=== PATIENT | female | born 1930 | race Caucasian/White ===

== ENCOUNTER 2016-08-26 13:00 | Inpatient (IN) | payer MEDICARE, BC ==
--- NOTE | ~2016-08-26 | DS ---
Unit #: [id number] #: [id number] Patient: VICTORIA CASE [id number] [address] [place], [place] [address] [id number] I MR#: [id number] NAME: VICTORIA CASE ROOM: 212 Age: 86 Sex: F Admission Date: 08/27/2016 : 1930 Discharge Date: 08/30/2016 Attending Physician: Darci Chua M.D. Primary Care Physician: Analisa Hall M.D. DISCHARGE SUMMARY FINAL DIAGNOSIS Intractable back pain secondary to multilevel degenerative cord compression without abnormal signal on MRI of 08/27/16. SECONDARY DIAGNOSES 1. Anxiety. 2. Hypertension. 3. Asthma. 4. Gastroesophageal reflux disease. HOSPITAL COURSE The patient is an 86-year-old female who basically presents with back pain. She had difficulty walking. I think the history suggests that she tripped and fell a few weeks prior to presentation. She was seen and evaluated and she had a MRI of her back which showed the above stated findings. Spine was consulted on account of abnormal MRI. However, it looks like their recommendations eventually were for an outpatient followup more so as the findings were chronic and not acute. She has outpatient followup appointment with Dr. Martinez on 09/02/2016. She will be discharged home with [facility], [facility]. MEDICATION ON DISCHARGE 1. Percocet 5/325 mg one tablet q.4 hourly p.r.n. 2. Medrol Dosepak. 3. ProAir HFA. 4. Triamcinolone cream per home dose. 5. Tylenol 650 mg every six hours p.r.n. over the counter. 6. Neurontin 200 mg p.o. twice a day. 7. Shantal 180 mg p.o. daily. 8. Alprazolam 0.5 mg p.o. t.i.d. 9. Coreg 6.25 mg p.o. b.i.d. 10. Amlodipine 5 mg every day. 11. Colace 100 mg b.i.d. 12. MiraLax 17 g p.o. daily as needed for constipation. 13. Breo Ellipta one daily. 14. Lasix 40 mg p.o. daily. 15. Lovastatin 20 mg every evening. 16. Hydralazine 50 mg p.o. t.i.d. 17. Cozaar 100 mg p.o. daily. 18. Fish oil one tablet p.o. daily. 19. Multivitamin one tablet p.o. daily. 20. Protonix 40 mg p.o. daily. 21. Calcium with vitamin D one tablet p.o. b.i.d. Unit #: [id number] #: [id number] Patient: VICTORIA CASE Time spent coordinating discharge about 22 minutes. Dictated by... Rafael Burns TD: 08/30/2016 14:21 JOB #: [id number] DISCHARGE SUMMARY X Ingrid Trnih MD X DISCHARGE SUMMARY
--- NOTE | ~2016-08-26 | CR63 ---
[facility] A Service of [facility] RADIOLOGY TEXT RESULTS PATIENT: VICTORIA CASE LOCATION: A : 30 UNIT #: [id number] AGE: [address]: Darci Chua MD SEX: F ORDER DR: [id number] [facility] [address] [facility]. [place], [place] [address] [id number] I MR#: [id number] Acc #: [id number] NAME: VICTORIA CASE : 1930 SEX: F STUDY DATE/TIME: 08/29/2016 9:42 UNIT: [facility] ROOM: [facility] STUDY DESCRIPTION: CR Chest 2 View Attending Physician: Darci Chua M.D. Primary Care Physician: Analisa Hall M.D. MEDICAL IMAGING REPORT This report is preliminary unless electronic signature is present EXAM PA and lateral chest, 08/29/2016 HISTORY 86-year-old female with shortness of breath. FINDINGS The heart is not enlarged. The lungs demonstrate bilateral pulmonary emphysema. Prior left shoulder replacement identified. No pneumothorax or pleural effusion seen. IMPRESSION Chronic lung changes but no acute pulmonary infiltrate or consolidation. No cardiac enlargement. Dictated by... Juanpablo Trujillo M.D. THIS IS AN ELECTRONICALLY VERIFIED REPORT Juanpablo Trujillo M.D. at 08/29/2016 4:51 PM Pratik TD: 08/29/2016 11:58 JOB #: [id number] MEDICAL IMAGING REPORT COPY
--- NOTE | ~2016-08-26 | MR32 ---
[facility] A Service of [facility] RADIOLOGY TEXT RESULTS PATIENT: VICTORIA CASE LOCATION: C3A 318- : 30 UNIT #: [id number] AGE: [address]: Darci Chua MD SEX: F ORDER DR: [id number] [facility] [address] [facility] [address] [facility] [place], [place] [address] [id number] I MR#: [id number] Acc #: [id number] NAME: VICTORIA CASE : 1930 SEX: F STUDY DATE/TIME: 08/26/2016 22:15 UNIT: C3A PCU ROOM: 318 STUDY DESCRIPTION: MR Cervical Wo Contrast Attending Physician: Darci Chua M.D. Ordering Physician: Physician Non-Staff Primary Care Physician: Analisa Hall M.D. MRI CENTER REPORT This report is preliminary unless electronic signature is present. EXAM Cervical spine MRI no contrast 08/26/2016 PROCEDURE Routine unenhanced cervical spine MRI COMPARISON None. HISTORY Neck pain after fall 3 weeks ago. History of breast cancer. FINDINGS There is a midcervical loss and even slight reversal of lordosis. There are some degenerative marrow signal changes and there is a slight 3-4 anterolisthesis. These findings all appear degenerative. Cord signal is normal and the posterior fossa and its contents are normal. The paraspinous tissues are remarkable for a possible right thyroid lesion incompletely evaluated here, but probably at least 15 mm in size. Recommend followup thyroid ultrasound. At C2-3, the canal is mildly narrowed and there is borderline left and no right foraminal narrowing. At 3-4, there is a broad disc and osteophyte complex with mild to moderate cord compression. No abnormal cord signal and severe right and moderate left foraminal stenosis. At 4-5, there is a bony ridge with canal stenosis and mild cord compression. There is moderate or moderate to severe right and moderate to severe left foraminal stenosis. At 5-6, there is a disc and osteophyte complex with left side predominant [facility] A Service of [facility] RADIOLOGY TEXT RESULTS PATIENT: VICTORIA CASE LOCATION: C3A 318-01 : 30 UNIT #: [id number] AGE: [address]: Darci Chua MD SEX: F ORDER DR: mild to moderate cord compression and moderate to severe bilateral foraminal stenosis. At 6-7, there is a disc and osteophyte complex with mild cord compression and moderate to severe or severe right and moderate to severe left foraminal stenosis. At 7-1, there is no canal stenosis or foraminal stenosis. IMPRESSION 1. Multilevel degenerative change and multilevel degenerative cord compression without abnormal cord signal. Multilevel foraminal compromise as well, see above for level by level details. 2. Suspect at least 15 mm right thyroid lesion. Recommend followup thyroid ultrasound. Dictated by... John Estrada M.D. THIS IS AN ELECTRONICALLY VERIFIED REPORT John Estrada M.D. at 08/28/2016 1:31 PM ROSINA/josh TD: 08/27/2016 09:48 JOB #: [id number] MRI CENTER REPORT COPY
--- NOTE | ~2016-08-26 | EKG ---
PATIENT: VICTORIA CASE UNIT #: [id number] Ventricular Rate: 68 BPM Atrial Rate: 68 BPM P-R Interval: 150 ms QRS Duration: 88 ms Q-T Interval: 372 ms QTC Calculation(Bezet): 395 ms P [place]: 39 degrees Calculated R [place]: -20 degrees Calculated T [place]: 13 degrees Diagnosis Line: Normal sinus rhythm with sinus arrhythmia Diagnosis Line: Moderate voltage criteria for LVH, may be normal Diagnosis Line: variant Diagnosis Line: Borderline ECG Diagnosis Line: When compared with ECG of 16-JAN-2016 10:03, Diagnosis Line: T wave inversion now evident in Inferior leads Diagnosis Line: Confirmed by ATUL GERBER MD ([id number]) on 08/29/2016 Diagnosis Line: 5:27:56 PM INTERPRETING MD: BUZZ TALLEY
--- NOTE | ~2016-08-26 | DS ---
Unit #: [id number] #: [id number] Patient: VICTORIA CASE [id number] [facility] [address] [facility]. [place], [place] [address] [id number] I MR#: [id number] NAME: VICTORIA CASE ROOM: 212 Age: 86 Sex: F Admission Date: 08/27/2016 : 1930 Discharge Date: 08/30/2016 Attending Physician: Darci Chua M.D. Primary Care Physician: Analisa Hall M.D. DISCHARGE SUMMARY PRIMARY CARE PHYSICIAN Analisa Hall M.D. DISCHARGE DIAGNOSES Include; 1. 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 This MRI was reviewed by Dr. Martinez remotely as he is unable to come to [facility] for an official consult, who states that due to no abnormal cord signs does not require any emergent intervention. He recommended the patient be treated with physical therapy and pain management. He does have an office at [facility] and she can follow up with him there on Tuesdays. 2. Asthma with acute mild acute exacerbation, treated with DuoNeb. 3. History of breast cancer. 4. Essential hypertension, blood pressure has been stable. 5. Anxiety. 6. Gastroesophageal reflux disease. PROCEDURES None. DIAGNOSTIC STUDIES IMAGING STUDIES: Consist of MRI of the spine with impression, multilevel degenerative change and multilevel degenerative cord compression without abnormal cord sign, multilevel foraminal compromise as well. See above for [id number] details. Suspect at least 15 mm right thyroid lesion. Recommend followup thyroid ultrasound. This can be done outpatient with Dr. Hauser. The two view chest x-ray on 08/29/2016, impression, chronic lung changes, but no acute pulmonary infiltrates or consolidation. No cardiac enlargement. LABORATORY RESULTS: On the day of discharge, the patient's lab includes glucose of 106, BUN 36, creatinine 1.2, sodium 138, potassium 4.4, chloride 99, CO2 of 27, calcium 9.8. CBC with WBC of 7.2, RBC 3.41, hemoglobin is 10.2, hematocrit is 31.0, MCV is 90.7, MCH is 21.9, MCHC is 32.0, RDW is 14.4, platelets are 365. HOSPITAL COURSE The patient is an 86-year-old female with past medical history of essential hypertension, asthma, breast cancer, who was brought to the emergency department due to worsening back pain. The patient had a fall 2 weeks ago while tripping at the house and leaning upon the back. The patient was seen by an ortho surgeon and x-ray was done, prescribed Unit #: [id number] #: [id number] Patient: VICTORIA CASE oxycodone for the pulled muscle. The patient was doing fine at that time; however, for last couple of days, the patient started to have worsening back pain and not able to get up to go to the bathroom. The patient denied fevers, chills, nausea, or vomiting. The patient denies urinary or fecal incontinence. The patient is still able to move all of her limbs. The patient denies palpitations or chest pain. The patient was admitted for back pain with immobility syndrome. An MRI was done with details as noted above, and again Dr. Martinez was consulted, but as he is unable to come to our facility, he did review the patient's MRI and we have discussed her case over the phone. He states that there is nothing to be done acutely and that he recommends physical therapy. He does have an office at [facility] Thursday. I have told the patient this as well as her daughter Ms. Kosta Roe. She will follow up with Dr. Martinez as an outpatient. Ms. Roe expressed concern to me that the patient lives alone, lives on the second stair and that she may fall and injure herself again. Physical Therapy and Occupational Therapy had seen the patient in consultation. The patient had done very well with physical therapy. The patient was able to ambulate for about 150 feet with minimal assist. The patient was also seen in consultation with Occupational Therapy, who states that she is at her baseline. We had requested rehab facilities to look at this patient for possible subacute therapy. Physical therapy reviewed her chart as well as reviewed occupational and physical therapies' notes and stated that she would not be appropriate for the subacute rehab. I have explained to the patient's daughter that she could be placed to a facility, but she would have to pay for this out of pocket. The patient's daughter said that she does not have the fund to do this at this time with her being so independent as evaluated by Occupational and Physical Therapy. I am recommending the patient to be discharged home with continuing physical and occupational therapy through [facility] health. Again, the patient's daughter is concerned that she possibly wound fall at home and concerned that she would not have her pain managed at home. With regards to her asthma, she does have scattered wheezing every now and then on exam and checked her oxygen level is 91% on room air. I have done a chest x-ray, which had no acute disease going on at this time. DISCHARGE CONDITION Stable. DISCHARGE FOLLOWUP Please see Dr. Martinez on [facility] on Thursday morning. Please see Dr. Hauser within 1 to 2 weeks upon discharge. DISCHARGE INSTRUCTIONS Discharge diet is heart healthy. Discharge activity is to resume activity as was prior to hospitalization with ambulating every day as tolerated. DISCHARGE MEDICATIONS Include ProAir inhaled one puff every 4 hours as needed for shortness of breath and/or wheezing, gabapentin 300 mg orally b.i.d., Shantal 180 mg orally daily, alprazolam 0.5 mg orally t.i.d., Coreg 6.25 mg orally b.i.d., Norvasc 5 mg orally every evening, Colace 100 mg orally b.i.d. as needed for constipation, MiraLAX 17 g orally daily as needed for constipation, Breo inhaled one capsule daily, Lasix 40 mg orally daily, Lovastatin 20 mg orally every evening, hydralazine 50 mg orally t.i.d., Cozaar 100 mg orally daily, fish oil one capsule orally t.i.d., multivitamin one tablet orally daily, tramadol 50 mg orally t.i.d., Protonix 40 mg orally daily, calcium plus D one tablet orally b.i.d. Unit #: [id number] #: [id number] Patient: VICTORIA CASE have prescribed oxycodone with acetaminophen 5-325 one tablet every 4 hours as needed for pain, and prescription given for 20. Of note, I am also prescribing Medrol Dosepak to be used as directed. Dictated by... Cory Hinojosa PA-C for Rafael Brown/melita TD: 09/01/2016 14:25 JOB #: [id number] DISCHARGE SUMMARY X X DISCHARGE SUMMARY
--- NOTE | ~2016-08-26 | HP ---
Unit #: [id number] #: [id number] Patient: VICTORIA CASE [id number] [address] [place], [place] [address] [id number] MR#: [id number] NAME: VICTORIA CASE ROOM: Age: 86 Sex: F Admission Date: 08/26/2016 : 1930 Attending Physician: Camille Andrew M.D. Primary Care Physician: Analisa Hall M.D. HISTORY AND PHYSICAL CHIEF COMPLAINT Back pain. HISTORY OF PRESENT ILLNESS The patient is an 86-year-old female with history of hypertension, asthma, brought to the emergency room with worsening back pain. The patient had a fall three weeks ago while tripping at the house and landing upon the back. The patient was seen by the ortho surgeon and had x-ray and was prescribed with Oxycodone for the pulled muscle. The patient was doing fine at that time. However, in the last few days, the patient stated the patient is having worsening back pain and is not able to get up to go to the bathroom. The patient denies any fever, chills, nausea, vomiting. The patient denies any urinary or fecal incontinence. The patient denies any palpitation, chest pain. PAST MEDICAL HISTORY History of hypertension, hyperlipidemia, asthma, breast cancer status post lumpectomy, anxiety, GERD, restless leg syndrome. PAST SURGICAL HISTORY Appendectomy, lumpectomy. SOCIAL HISTORY The patient lives alone. She is accompanied by her son. She stopped smoking 30 years ago. The patient does not drink alcohol. FAMILY HISTORY Noncontributory. Family history reviewed and none. ALLERGIES Triplex, Phenergan, codeine, Mobic. HOME MEDICATIONS 1. Colace. 2. Lasix. 3. Pantoprazole. 4. Calcium. 5. Multivitamin. 6. Coreg. 7. Hydralazine. 8. Cozaar. 9. Breo. 10. ProAir. 11. MiraLax. Unit #: [id number] #: [id number] Patient: VICTORIA CASE 12. Triamcinolone. 13. Shantal. 14. Xanax. 15. Norvasc. 16. Fish oil 17. Lovastatin. 18. Tramadol. 19. Neurontin. REVIEW OF SYSTEMS A 14-point review of systems was performed and only pertinent positive findings are as described above, remaining are negative. PHYSICAL EXAMINATION GENERAL APPEARANCE: The patient is lying on her bed, not in acute distress. VITAL SIGNS: Temperature 97.9. Pulse (1) . Respiratory rate 18. Blood pressure 143/79. Sating 99% at room air. HEENT: Head: Atraumatic, normocephalic. Pupils equal, round and reactive to light and accommodation. Extraocular movements are intact. NECK: Supple. No lymphadenopathy. LUNGS: Decreased air entry at the bases. No rhonchi. No wheezing. HEART: Regular rate and rhythm. ABDOMEN: Soft. Positive bowel sounds. EXTREMITIES: No cyanosis. No clubbing. BACK: Lower back pain, mainly paraspinal. NEUROLOGIC: Alert, awake, oriented. No gross focal motor deficit. DIAGNOSTIC STUDIES Labs not done by the ER physician. We ordered the basic labs, CBC, BMP. ASSESSMENT 1. Back pain. 2. Status post fall. 3. Hypertension. 4. Asthma. PLAN Admit the patient to observation with telemetry. We will check the MRI of the spine as the patient was scheduled to have MRI of the spine at [facility]. I will have Ortho/Spine Surgery follow for the back pain and continue the pain control with morphine and repeat the labs again. Further recommendations will follow. Dictated by Rafael Schofield TD: 08/26/2016 13:41 JOB #: [id number] Unit #: [id number] #: [id number] Patient: VICTORIA CASE HISTORY AND PHYSICAL X X HISTORY AND PHYSICAL
[~2016-08-26 13:00] MED LIST: ALBUTEROL20 ml INH; ALPRAZOLAM1 MG PO; AMLODIPINE BESYL5 MG PO; APRESOLINE10 M1 PO; BREO ELLIPTA I1 EACH INH; BYSTOLIC5 MG PO; CALCIUM + D 6001 TA1 PO; CARVEDILOL3.125 MG PO; CERTAGEN PO; CLARITIN10 M2 PO; COLACE PO; COMBIVENT MININEB INH; COMBIVENT U/D3 M1 INH; COZAAR100 MG PO; ESTER C 500 MG PO; ESTER-C500 M1 PO; FEMARA2.5 MG PO; FISH OIL 1,2001 CAP PO; FISH OIL 1,2001 EAC2 PO; LEVAQUIN PO; LOVASTATIN20 M1 PO; LOVASTATIN20 MG PO; LYSINE500 M1 PO; MIRALAX17 GM DOB; MIRALAX17 GM PO; MULTI-DAY1 TAB PO; NEURONTIN100 MG PO; PANTOPRAZOLE SO40 MG PO; PHENERGAN25 MG PO; PRINIVIL40 MG PO; REQUIP0.25 MG PO; ROBITUSSIN-DM118 ML PO; SINGULAIR PO; STOOL SOFTENER250 MG PO; TRAMADOL HCL50 M1 PO; XANAX1 MG PO
[2016-08-26] MEDS ORDERED: TRIAMCINOLONE AC1 GM EXT (13:02)
[2016-08-26] MEDS ORDERED: ALLEGRA PO (13:02)
[2016-08-26] MEDS ORDERED: MIRALAX17 GM PO (13:02)
[2016-08-26] MEDS ORDERED: ALPRAZOLAM0.5 M1 PO (13:04)
[2016-08-26] MEDS ORDERED: AMLODIPINE BESYL5 MG PO (13:04)
[2016-08-26] MEDS ORDERED: COREG6.25 MG PO (13:05)
[2016-08-26] MEDS ORDERED: HYDRALAZINE HCL50 MG PO (13:05)
[2016-08-26] MEDS ORDERED: COZAAR100 MG PO (13:06)
[2016-08-26] MEDS ORDERED: BREO ELLIPTA 11 EACH INH (13:06)
[2016-08-26] MEDS ORDERED: PROAIR HFA8.5 GM INH (13:07)
[2016-08-26] MEDS ORDERED: PANTOPRAZOLE SO40 MG PO (13:08)
[2016-08-26] MEDS ORDERED: DOCUSATE SODIU100 MG PO (13:08)
[2016-08-26] MEDS ORDERED: FUROSEMIDE40 MG PO (13:08)
[2016-08-26] MEDS ORDERED: CALCIUM 600 + D1 TAB PO (13:09)
[2016-08-26] MEDS ORDERED: MULTI VITAMIN1 EACH PO (13:10)
[2016-08-26] MEDS ORDERED: FISH OIL 1,2001 EAC2 PO (13:11)
[2016-08-26] MEDS ORDERED: LOVASTATIN20 M1 PO (13:11)
[2016-08-26] MEDS ORDERED: TRAMADOL HCL50 M2 PO (13:12)
[2016-08-26] MEDS ORDERED: NEURONTIN100 MG PO (13:12)
[2016-08-26 14:27] LABS: BASOPHIL% 0.2 % (0-2.5); EOSINOPHIL# 0.1 X10e3 (0-0.7); EOSINOPHIL% 1.1 % (0.0-7.0); HEMATOCRIT 27.8 % (35.0-45.0); HEMOGLOBIN 9.6 gm/dL (12.0-16.0); LYMPHOCYTE# 0.8 X10e3 (1.0-3.5); LYMPHOCYTE% 11.7 % (17.0-45.0); MEAN CELL VOLUME 89.7 FL (83-96); MEAN CORPUSCULAR HEMOGLOBIN 30.8 PG (28-34); MEAN CORPUSCULAR HGB CONC 34.4 g/dL (30-36); MEAN PLATELET VOLUME 5.4 FL (6.5-11.5); MONOCYTE# 0.7 X10e3 (0-1.0); MONOCYTE% 10.3 % (3.0-12.0); NEUTROPHIL# 5.5 X10e3 (1.5-7.1); NEUTROPHIL% 76.7 % (40-75); PLATELET COUNT 353 X10e3 (140-420); RED CELL DISTRIBUTION WIDTH 14.6 % (11.0-15.5); WHITE BLOOD COUNT 7.1 X10e3 (4.0-10.5)
[2016-08-26 14:31] LABS: DIFF IND NO
[2016-08-26 15:00] LABS: BLOOD UREA NITROGEN 23 mg/dL (9-23); BUN/CREATININE RATIO 28.75; CALCIUM SERUM 9.2 mg/dL (8.4-10.2); CARBON DIOXIDE 26 mmol/L (22-31); CHLORIDE 101 mmol/L (100-111); CREATININE SERUM 0.8 mg/dL (0.6-1.4); GLOM FILT RATE Estimated ABOVE60 mL/min (>60); GLUCOSE FASTING 100 mg/dL (70-110); POTASSIUM 3.9 mmol/L (3.5-5.1); SODIUM 136 mmol/L (135-145)
[2016-08-27 06:45] LABS: BASOPHIL% 0.2 % (0-2.5); EOSINOPHIL# 0.1 X10e3 (0-0.7); EOSINOPHIL% 2.3 % (0.0-7.0); HEMATOCRIT 29.2 % (35.0-45.0); HEMOGLOBIN 9.9 gm/dL (12.0-16.0); LYMPHOCYTE# 1.1 X10e3 (1.0-3.5); LYMPHOCYTE% 21.2 % (17.0-45.0); MEAN CELL VOLUME 89.7 FL (83-96); MEAN CORPUSCULAR HEMOGLOBIN 30.6 PG (28-34); MEAN CORPUSCULAR HGB CONC 34.1 g/dL (30-36); MEAN PLATELET VOLUME 5.9 FL (6.5-11.5); MONOCYTE# 0.7 X10e3 (0-1.0); NEUTROPHIL# 3.3 X10e3 (1.5-7.1); NEUTROPHIL% 63.3 % (40-75); PLATELET COUNT 351 X10e3 (140-420); RED BLOOD COUNT 3.25 X10e (3.90-5.30); RED CELL DISTRIBUTION WIDTH 14.6 % (11.0-15.5); WHITE BLOOD COUNT 5.1 X10e3 (4.0-10.5)
[2016-08-27 06:48] LABS: DIFF IND NO
[2016-08-27 07:19] LABS: BLOOD UREA NITROGEN 23 mg/dL (9-23); BUN/CREATININE RATIO 25.55; CALCIUM SERUM 9.2 mg/dL (8.4-10.2); CARBON DIOXIDE 27 mmol/L (22-31); CHLORIDE 99 mmol/L (100-111); CREATININE SERUM 0.9 mg/dL (0.6-1.4); GLOM FILT RATE Estimated ABOVE60 mL/min (>60); GLUCOSE FASTING 104 mg/dL (70-110); POTASSIUM 3.6 mmol/L (3.5-5.1); SODIUM 135 mmol/L (135-145)
[2016-08-28 05:22] LABS: HEMATOCRIT 30.9 % (35.0-45.0); HEMOGLOBIN 10.5 gm/dL (12.0-16.0); MEAN CELL VOLUME 90.2 FL (83-96); MEAN CORPUSCULAR HEMOGLOBIN 30.7 PG (28-34); MEAN CORPUSCULAR HGB CONC 34.1 g/dL (30-36); RED BLOOD COUNT 3.43 X10e (3.90-5.30); RED CELL DISTRIBUTION WIDTH 14.9 % (11.0-15.5); WHITE BLOOD COUNT 5.9 X10e3 (4.0-10.5)
[2016-08-28 06:50] LABS: BUN/CREATININE RATIO 25.83; CALCIUM SERUM 9.3 mg/dL (8.4-10.2); CREATININE SERUM 1.2 mg/dL (0.6-1.4); GLOM FILT RATE Estimated 45.3 mL/min (>60)
[2016-08-29 07:06] LABS: HEMOGLOBIN 10.2 gm/dL (12.0-16.0); MEAN CELL VOLUME 90.7 FL (83-96); MEAN CORPUSCULAR HEMOGLOBIN 29.9 PG (28-34); MEAN PLATELET VOLUME 6.1 FL (6.5-11.5); RED BLOOD COUNT 3.41 X10e (3.90-5.30); RED CELL DISTRIBUTION WIDTH 14.4 % (11.0-15.5); WHITE BLOOD COUNT 7.2 X10e3 (4.0-10.5)
[2016-08-29 07:53] LABS: CALCIUM SERUM 9.4 mg/dL (8.4-10.2); CREATININE SERUM 1.2 mg/dL (0.6-1.4); GLOM FILT RATE Estimated 45.3 mL/min (>60); POTASSIUM 4.4 mmol/L (3.5-5.1)
[2016-08-29 08:44] LABS: CK TOTAL 25 IU/L (26-140)
[2016-08-29 13:57] LABS: CK TOTAL 17 IU/L (26-140)
[2016-08-29 18:57] LABS: CK TOTAL 18 IU/L (26-140)
[2016-08-30] MEDS ORDERED: APAP325 M2 PO (10:52)
[2016-08-30] MEDS ORDERED: BISACODYL EC5 M1 PO (10:53)
[2016-08-30] MEDS ORDERED: MEDROL DOSEPAK4 MG PO (10:55)
[2016-08-30] MEDS ORDERED: PERCOCET5/325 PO (10:56)
== END 2016-08-30 11:50 | disposition home or self-care (01) | DRG 92 ==
LOC: CED 13:00 → CEDOF 13:15 → C3A PCU 16:04 → C2A 08-29 00:51
PROVIDERS: Family Medicine; Internal Medicine; Physician Assistant Medical
DX: G95.29 Other cord compression (principal); J45.901 Unspecified asthma with (acute) exacerbation; I10 Essential (primary) hypertension; Z85.3 Personal history of malignant neoplasm of breast; K21.9 Gastro-esophageal reflux disease without esophagitis; F41.9 Anxiety disorder, unspecified; E78.5 Hyperlipidemia, unspecified; G25.81 Restless legs syndrome
CPT/HCPCS: 36415; 71020; 72141; 80048; 82550; 83880; 84484; 85025; 85027; 93005; 94640; 94664; 94760; 96374; 97116; 97162; 97166; 99285; G8978-GO; G8978-GP; G8979-GO; G8979-GP; G8980-GO; G8987-GO; G8988-GO; G8989-GO; J1650; J2270

== ENCOUNTER → 2016-09-24 | Outpatient (CLI) | payer MEDICARE, BC ==
[~2016-09-24] MED LIST changes: +ALLEGRA PO; +ALPRAZOLAM0.5 M1 PO; +APAP325 M2 PO; +BISACODYL EC5 M1 PO; +BREO ELLIPTA 11 EACH INH; +CALCIUM 600 + D1 TAB PO; +COREG6.25 MG PO; +DOCUSATE SODIU100 MG PO; +FUROSEMIDE40 MG PO; +HYDRALAZINE HCL50 MG PO; +MEDROL DOSEPAK4 MG PO; +MULTI VITAMIN1 EACH PO; +PERCOCET5/325 PO; +PROAIR HFA8.5 GM INH; +TRAMADOL HCL50 M2 PO; +TRIAMCINOLONE AC1 GM EXT
--- NOTE | ~2016-09-24 | MR113 ---
[facility] A Service of [facility] RADIOLOGY TEXT RESULTS PATIENT: VICTORIA CASE [facility] UNIT #: [id number] AGE: [address]: Michael Martinez MD SEX: F ORDER DR: [id number] [facility] [address] [place], [place] [address] [id number] O MR#: [id number] Acc #: [id number] NAME: VICTORIA CASE : 1930 SEX: F STUDY DATE/TIME: 09/24/2016 11:20 UNIT: [facility] ROOM: STUDY DESCRIPTION: MR Lumbar Wo Contrast Attending Physician: Michael Martinez M.D. Referring Physician: Michael Martinez M.D. Ordering Physician: Michael Martinez M.D. Primary Care Physician: Analisa Hall M.D. MRI CENTER REPORT This report is preliminary unless electronic signature is present. EXAM Lumbar spine MRI without contrast. DATE OF STUDY 09/24/2016 PROCEDURE Routine lumbar spine MRI without contrast. COMPARISON None. CLINICAL HISTORY Fell in bathroom 3 weeks ago with severe low back pain since then as well as some left leg pain. FINDINGS There is a slight degenerative grade 1 4-5 anterolisthesis. There is no acute lumbar fracture but there is extensive marrow edema typical of a sacral insufficiency fracture. There is no apparent substantial displacement. Bone marrow signal is otherwise normal. The distal cord and conus are normal in position and appearance. At 1-2, there is a disc bulge and mild canal stenosis. There is perhaps borderline bilateral foraminal stenosis. At 2-3, there is a disc bulge and wjxr-vp-nyejeysu or moderate canal stenosis and mild or ivbb-hi-fcuysxao right and left foraminal stenosis. At 3-4, there is moderate canal stenosis due to disc and endplate change and facet arthropathy and mild right and poww-ei-orckywgy left foraminal STS. [facility] A Service of [facility] RADIOLOGY TEXT RESULTS PATIENT: VICTORIA CASE LOCATION: [facility] : 30 UNIT #: [id number] AGE: [address]: Michael Martinez MD SEX: F ORDER DR: stenosis. At 4-5, there is severe canal stenosis due to anterolisthesis and disc and endplate change. There is khsa-ii-rfsopktd right and left foraminal stenosis. At 5-1, there is mild if any bony canal stenosis but moderate to severe right and moderate left foraminal stenosis. IMPRESSION Multilevel degenerative canal stenosis with lesser foraminal narrowing, but predominant acute finding is a typical sacral insufficiency fracture.. The transverse sacral components about the S2 to S2-3 level. Displacement is mild. Dictated by... John Estrada M.D. THIS IS AN ELECTRONICALLY VERIFIED REPORT John Estrada M.D. at 09/26/2016 4:01 PM TEV/tmw TD: 09/25/2016 14:58 JOB #: [id number] MRI CENTER REPORT Page 1 of 1 COPY
== END | disposition home or self-care (01) ==
LOC: CMRI 09:59
DX: M51.36 Other intervertebral disc degeneration, lumbar region (principal); M48.06 Spinal stenosis, lumbar region; M84.48XA Pathological fracture, other site, initial encounter for fracture
CPT/HCPCS: 72148

== ENCOUNTER 2016-10-14 18:11 | Emergency (ER) | payer MEDICARE, BC ==
--- NOTE | ~2016-10-14 | CR4 ---
[facility] A Service of [facility] RADIOLOGY TEXT RESULTS PATIENT: VICTORIA CASE LOCATION: [facility] : 30 UNIT #: [id number] AGE: [address]: Chaya Qiu MD SEX: F ORDER DR: [id number] [facility] [address] [facility] [place], [place] [address] [id number] E MR#: [id number] [facility] #: [id number] NAME: VICTORIA CASE : 1930 SEX: F STUDY DATE/TIME: 10/14/2016 18:39 UNIT: [facility] ROOM: STUDY DESCRIPTION: CR Abdomen Flat Upright or Dec Attending Physician: Chaya Qiu M.D. Ordering Physician: Chaya Qiu M.D. Primary Care Physician: Analisa Hall M.D. MEDICAL IMAGING REPORT This report is preliminary unless electronic signature is present EXAM Supine and upright AP views of the abdomen. COMPARISON None. INDICATION An 86-year-old female with diffuse abdominal pain and constipation for 6 days. FINDINGS Left shoulder total arthroplasty appears incompletely imaged. No evidence of complication is seen. There is poor inspiratory effort. There is calcification of the aortic arch. There is minimal band-like atelectasis in the right lung base. No evidence of pneumothorax or pleural effusion. Surgical clips noted in the left axilla. No free subdiaphragmatic air. Suture material is noted in the right hemiabdomen. There are bilateral pelvic calcifications favoring phleboliths. There are also calcified splenic granulomas. Degenerative changes at both hips. Degenerative disc height loss at L4-L5. There are likely calcified hepatic granulomas as well. IMPRESSION 1. No evidence of bowel obstruction or perforation. Normal stool burden. 2. Bilateral pelvic calcifications favoring phleboliths. Clinical correlation recommended. Calcified splenic granulomas are noted, with suspicion of calcified hepatic granulomas as well. 3. Suture material in the right hemiabdomen. Dictated by... Néstor Connelly M.D. [facility] A Service of [facility] RADIOLOGY TEXT RESULTS PATIENT: VICTORIA CASE LOCATION: [facility] : 30 UNIT #: [id number] AGE: [address]: Chaya Qiu MD SEX: F ORDER DR: THIS IS AN ELECTRONICALLY VERIFIED REPORT Néstor Connelly M.D. at 10/15/2016 11:25 AM Nish TD: 10/15/2016 05:48 JOB #: [id number] MEDICAL IMAGING REPORT Page 1 of 1 COPY
== END 2016-10-14 20:50 | disposition home or self-care (01) ==
LOC: CED 18:11
DX: K59.00 Constipation, unspecified (principal); Z90.49 Acquired absence of other specified parts of digestive tract; I10 Essential (primary) hypertension
CPT/HCPCS: 74020; 99284

== ENCOUNTER → 2017-03-13 | Outpatient (CLI) | payer MEDICARE, BC ==
--- NOTE | ~2017-03-13 | CT127 ---
[facility] A Service of [facility] & [facility] [place] [place] RADIOLOGY TEXT RESULTS PATIENT: VICTORIA CASE LOCATION: [facility] : [birth year] UNIT #: [id number] AGE: [address]: CLAYTON MENDES APRN SEX: F ORDER DR: [id number] [facility] [address] [place], [place] [address] [id number] O MR#: [id number] Acc #: [id number] NAME: VICTORIA CASE : 1930 SEX: F STUDY DATE/TIME: 03/13/2017 15:40 UNIT: [facility] ROOM: STUDY DESCRIPTION: CT Upper Ext Lt Wo Cont Attending Physician: Clayton Mendes Aprn Referring Physician: Clayton Mendes Aprn Ordering Physician: Clayton Mendes Aprn Primary Care Physician: Analisa Hall M.D. MEDICAL IMAGING REPORT This report is preliminary unless electronic signature is present EXAM CT left shoulder. 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 Clinical concern for acromial fracture. TECHNIQUE This CT exam was performed with one or more of the following radiation dose reduction techniques: Automatic exposure control, adjustment of mA and/or kV according to patient size, and iterative reconstruction. COMPARISON Left shoulder films, 06/06/2016, CT left shoulder, 01/16/2016. FINDINGS When compared to the CT scan of 01/16/2016. The patient has undergone interval reverse shoulder arthroplasty. Glenoid and humeral components appear in expected position alignment. No fracture or loosening instrumentation. There is an oblique vertical fracture through the acromion with minimal callus formation. Fracture margins are well delineated and no evidence of fracture healing. Some sclerosis and cystic change along the fracture may suggest chronic nonunion. A second oblique fracture is noted through the dorsal spine of the scapula approximately 5 cm medial to the acromial fracture. [place] screws from the glenoid component extends to the base of the fracture. It does not appear to be interposed within the fracture. There is evidence of mild fracture healing with some periosteal reaction. The fractures are nondisplaced. Shoulder musculature and soft tissues unremarkable. No significant rotator cuff atrophy. Visualized left thorax unremarkable except for STS. [facility] A Service of [facility] & [facility] [place] [place] RADIOLOGY TEXT RESULTS PATIENT: VICTORIA CASE LOCATION: [facility] : 30 UNIT #: [id number] AGE: [address]: CLAYTON MENDES APRN SEX: F ORDER DR: surgical clips within the left axilla. Moderate AC joint arthropathy noted. IMPRESSION 1. Status post reverse shoulder arthroplasty with components in expected position alignment. 2. Vertical oblique fracture through the acromion approximately 4 cm from the distal tip of the acromion. Minimal callus formation and no significant fracture healing. 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 3. Second fracture demonstrated along the dorsal spine of the scapula. It shows only minimal fracture healing. Dictated by... Katie Murillo M.D. THIS IS AN ELECTRONICALLY VERIFIED REPORT Katie Murillo M.D. at 03/17/2017 5:07 PM JOANNE/frank TD: 03/16/2017 15:17 JOB #: [id number] MEDICAL IMAGING REPORT Page 1 of 1 COPY
== END | disposition home or self-care (01) ==
LOC: CCAT 14:35
DX: M25.512 Pain in left shoulder (principal); S42.122D Displaced fracture of acromial process, left shoulder, subsequent encounter for fracture with routine healing; S42.192D Fracture of other part of scapula, left shoulder, subsequent encounter for fracture with routine healing; Z96.612 Presence of left artificial shoulder joint
CPT/HCPCS: 71250; 73200